=== PATIENT | male | born 1980 | race Caucasian/White ===

== ENCOUNTER 2017-06-10 11:14 | Emergency (ER) | payer BC ==
[2017-06-10 12:48] VITALS: BP 98/60
--- NOTE | 2017-06-10 13:02 | UC ---
Throat Pain/Nasal Aram HPI - HPI Summary HPI Summary: Patient experienced sudden onset of fever chills and sore throat last night feels like the right side of his throat is swollen. - History of Current Complaint Chief Complaint: UCGeneralIllness Stated Complaint: sore throat Time Seen by Provider: 06/10/17 12:52 Hx Obtained From: Patient Onset/Duration: Sudden Onset, Lasting Days - 1, Still Present Severity: Moderate Pain Intensity: 4 Pain Scale Used: 0-10 Numeric Cough: None Associated Signs & Symptoms: Positive: Negative - Allergies/Home Medications Allergies/Adverse Reactions: Allergies Allergy/AdvReac Type Severity Reaction Status Date / Time cefaclor Allergy Intermediate Hives Verified 06/10/17 12:49 PMH/Surg Hx/FS Hx/Imm Hx Previously Healthy: Yes - Surgical History Surgical History: None Surgery Procedure, Year, and Place: denies - Family History Known Family History: Positive: None - Social History Occupation: Employed Full-time Lives: With Family Alcohol Use: Daily Substance Use Type: None Smoking Status (MU): Never Smoked Tobacco Review of Systems Constitutional: Fever, Chills, Fatigue Skin: Negative Eyes: Negative ENT: Sore Throat Respiratory: Negative Cardiovascular: Negative Gastrointestinal: Negative Genitourinary: Negative Motor: Negative Neurovascular: Negative Musculoskeletal: Arthralgia Neurological: Headache Psychological: Negative Is Patient Immunocompromised?: No All Other Systems Reviewed And Are Negative: Yes Physical Exam Triage Information Reviewed: Yes Appearance: Well-Nourished, Ill-Appearing, Pain Distress Vital Signs: Initial Vital Signs Temp 101.5 F 06/10/17 12:44 Pulse 108 06/10/17 12:44 Resp 20 06/10/17 12:44 BP 98/60 06/10/17 12:44 Pulse Ox 96 06/10/17 12:44 Vital Signs Reviewed: Yes Eye Exam: Normal Eyes: Positive: Conjunctiva Clear ENT Exam: Normal ENT: Positive: Normal ENT inspection, Hearing grossly normal, Pharyngeal erythema, TMs normal, Tonsillar swelling, Uvula midline. Negative: Nasal congestion, Trismus, Muffled voice, Hoarse voice, Dental tenderness, Sinus tenderness Dental Exam: Normal Neck exam: Normal Neck: Positive: Supple, Nontender, No Lymphadenopathy Respiratory Exam: Normal Respiratory: Positive: Chest non-tender, Lungs clear, Normal breath sounds, No respiratory distress, No accessory muscle use Cardiovascular Exam: Normal Cardiovascular: Positive: RRR, No Murmur, Pulses Normal, Brisk Capillary Refill Musculoskeletal Exam: Normal Musculoskeletal: Positive: Strength Intact, ROM Intact, No Edema Neurological Exam: Normal Neurological: Positive: Alert, Muscle Tone Normal Psychological Exam: Normal Skin Exam: Normal Diagnostics - Laboratory Diagnostic Studies Completed/Ordered: Influenza a and influenza B are negative. Rapid strep is positive Throat Pain/Nasal Course/Dx - Course Assessment/Plan: Rest increase fluids Tylenol ibuprofen for pain. Amoxicillin 875 mg by mouth twice a day for 10 days. Follow with PCP when necessary - Differential Dx/Diagnosis Provider Diagnoses: Strep pharyngitis Discharge - Sign-Out/Discharge Documenting (check all that apply): Discharge - Discharge Plan Condition: Stable Disposition: HOME Prescriptions: Amoxicillin PO (*) [Amoxicillin 875 MG (*)] 875 mg PO BID #20 tab Patient Education Materials: Strep Throat (ED) Forms: *Work Release Referrals: Dario Brar MD [Primary Care Provider] - If Needed - Billing Disposition and Condition Condition: STABLE Disposition: HOME
[2017-06-10] MEDS ORDERED: Acetaminophen TAB* 325 MG PO ONE (13:11)
== END 2017-06-10 13:40 | disposition home or self-care (01) ==
LOC: UCEAST 11:14
DX: J02.0 Streptococcal pharyngitis (principal); Z88.1 Allergy status to other antibiotic agents
CPT/HCPCS: 87502; 87651; 99212; A9270-GY; G0463

== ENCOUNTER 2017-12-30 16:08 | Emergency (ER) | payer BC, OTHER ==
--- NOTE | 2017-12-30 16:45 | ED ---
Medical Screening - HPI Summary HPI Summary: Patient is a 37 y/o M presenting to ED for bloodwork. Patient works in [employer]. 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 At this time, the catheter flipped up and splashed the patient in the eye with bodily fluids. Patient reports he washed face and flushed eye. No other medical problems are reported. On triage, pain is denied, nothing is noted to aggravate/alleviate Sx. Home medications and allergies are reveiwed. - History of Current Complaint Chief Complaint: EDExposureBodyFluid Stated Complaint: EXPOSURE Time Seen by Provider: 12/30/17 16:40 Onset/Duration: Started Hours Ago, Resolved - patient washed face and flushed eye Severity: mild - pain denied on triage Associated Signs and Symptoms: Negative PMH/Surg Hx/FS Hx/Imm Hx Endocrine/Hematology History: Denies: Hx Diabetes, Hx Thyroid Disease Cardiovascular History: Denies: Hx Hypercholesterolemia, Hx Hypertension, Hx Pacemaker/ICD, Hx Peripheral Vascular Disease Respiratory History: Denies: Hx Asthma, Hx Chronic Obstructive Pulmonary Disease (COPD) GI History: Denies: Hx Ulcer Musculoskeletal History: Denies: Hx Arthritis, Hx Osteoporosis Sensory History: Denies: Hx Cataracts, Hx Contacts or Glasses, Hx Glaucoma, Hx Hearing Aid Opthamlomology History: Denies: Hx Cataracts, Hx Contacts or Glasses, Hx Glaucoma Neurological History: Denies: Hx Headaches, Hx Seizures, Hx Transient Ischemic Attacks (TIA) Psychiatric History: Denies: Hx Anxiety, Hx Depression, Hx Panic Disorder - Surgical History Surgery Procedure, Year, and Place: denies Infectious Disease History: No Infectious Disease History: Denies: Hx Hepatitis, Hx Human Immunodeficiency Virus (HIV), Traveled Outside the [place] in Last 30 Days - Family History Known Family History: Negative: Blood Disorder - Social History Alcohol Use: Daily Substance Use Type: Reports: None Smoking Status (MU): Never Smoked Tobacco Review of Systems Negative: Fever - on vitals, temp is 97.7 F Positive: Other - bodily fluid exposure to eye All Other Systems Reviewed And Are Negative: Yes Physical Exam - Summary Physical Exam Summary: Appearance: Well appearing, no pain distress Skin: warm, dry, reflects adequate perfusion Head/face: normal Eyes: EOMI, [place] ENT: mucous membranes moist Neck: supple, non-tender Respiratory: CTA, breath sounds present Cardiovascular: RRR, pulses symmetrical Abdomen: non-tender, soft Bowel Sounds: present Musculoskeletal: normal, strength/ROM intact Neuro: normal, sensory motor intact, A&Ox3 Triage Information Reviewed: Yes Vital Signs On Initial Exam: Initial Vitals Temp Pulse Resp BP Pulse Ox 97.7 F 74 16 129/80 97 12/30/17 16:09 12/30/17 16:09 12/30/17 16:09 12/30/17 16:09 12/30/17 16:09 Vital Signs Reviewed: Yes Diagnostics - Vital Signs Vital Signs Temp Pulse Resp BP Pulse Ox 12/30/17 16:09 97.7 F 74 16 129/80 97 - Laboratory Result Diagrams: 12/30/17 16:59 12/30/17 16:59 Lab Statement: Any lab studies that have been ordered have been reviewed, and results considered in the medical decision making process. Re-Evaluation - Re-Evaluation First Eval Re-Evaluation Time: 18:10 Comment: Results of labs and tests were discussed with patient, he was advised to follow up with occupational health. Patient will be discharged to home, he is agreeable with this plan. 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 He irrigated the eye immediately. There is no blood available for this discharged source patient for testing. Employee wishes to have PEP started. Laboratories obtained. Protocol medications initiated. Follow-up with employee health. - Diagnoses Provider Diagnoses: History of exposure to hazardous bodily fluids Discharge - Sign-Out/Discharge Documenting (check all that apply): Patient Departure - discharge - Discharge Plan Condition: Improved Disposition: HOME Prescriptions: Ondansetron HCl [Zofran 4 MG TAB] 4 mg PO TID PRN #15 tab PRN Reason: Nausea Raltegravir* [Isentress*] 400 mg PO BID #50 tab Tenofovir/Emtricitab 200/300 * [Truvada 200/300 mg*] 1 tab PO DAILY #25 tab Patient Education Materials: Body Substance Exposure (ED) Referrals: Dario Brar MD [Primary Care Provider] - Additional Instructions: Follow up with occupational health here. Return if worse or other concerns. - Billing Disposition and Condition Condition: IMPROVED Disposition: Home - Attestation Statements Document Initiated by Scribe: Yes Documenting Scribe: Miguel Shin Provider For Whom Scribe is Documenting (Include Credential): Dino Wong MD Scribe Attestation: I, Miguel Shin , scribed for Dino Wong MD on 12/31/17 at 0735. Scribe Documentation Reviewed: Yes Provider Attestation: The documentation as recorded by the [email or web address] accurately reflects the service I personally performed and the decisions made by me, Dino Wong MD
[2017-12-30 17:06] LABS: ABS Basophils 0 10^3/ul (0-0.2); ABS Eosinophils 0.1 10^3/ul (0-0.6); ABS Lymphocytes 2.4 10^3/ul (1.0-4.8); ABS Monocytes 0.5 10^3/ul (0-0.8); ABS Neutrophils 3.7 10^3/ul (1.5-7.7); ABS Nucleated RBC 0 10^3/ul; Eosinophil % 1.3 % (0-6); Hematocrit 42 % (42-52); Hemoglobin 14.9 g/dl (14.0-18.0); Lymphocyte % 36.1 % (25-47); Mean Corpuscular HGB Conc 35 g/dl (31-36); Mean Corpuscular Hemoglobin 32 pg (27-31); Mean Corpuscular Volume 91 fL (80-94); Mean Platelet Volume 8.1 fL (7.4-10.4); Nucleated Red Blood Cells % 0.2; Platelet Count 307 10^3/ul (150-450); Red Blood Count 4.66 10^6/ul (4.00-5.40); Red Cell Distribution Width 13 % (10.5-15); White Blood Count 6.7 10^3/ul (3.5-10.8)
[2017-12-30 17:24] LABS: EGFR Non-African American 92.5 (>60)
[2017-12-30] MEDS ORDERED: Tenofovir/Emtricitab 200/300 * TAB PO ONE (18:05)
[2017-12-30] MEDS ORDERED: Raltegravir* 400 MG TAB PO ONE (18:07)
[2017-12-30 18:22] VITALS: BP 00/0
== END 2017-12-30 18:21 | disposition home or self-care (01) ==
LOC: ED 16:08
DX: Z77.21 Contact with and (suspected) exposure to potentially hazardous body fluids (principal)
CPT/HCPCS: 36415; 80053; 85025; 86703; 86706; 86803; 87340; 99282